=== PATIENT | female | born 1990 | race American Indian/Alaskan Native ===

== ENCOUNTER 2018-01-10 02:52 | Emergency (ER) | payer OTHER ==
[2018-01-10] MEDS ORDERED: ZOFRAN IV ONE ×2 (05:01→09:34)
[2018-01-10] MEDS ORDERED: NACL 0.9% 1000 ML 1,000 ML IV ONE (05:02)
[2018-01-10 05:47] LABS: Hematocrit 41.9 % (30.3-42.9); Hemoglobin 14.6 gm/dl (10.1-14.3); Mean Corpuscular HGB Conc 35 % (30-34); Mean Corpuscular Hemoglobin 30 pg (28-32); Mean Corpuscular Volume 86 fl (79-97); Platelet Count 261 K/mm3 (140-440); Red Cell Distribution Width 13.5 % (13.2-15.2)
[2018-01-10 05:48] LABS: Basophils % (Auto) 0.2 % (0.0-1.8); Lymphocytes # (Auto) 1.1 K/mm3 (1.2-5.4); Lymphocytes % (Auto) 9.4 % (13.4-35.0); Mean Platelet Volume 9.4 fl (6-12); Monocytes # (Auto) 0.4 K/mm3 (0.0-0.8); Monocytes % (Auto) 3.2 % (0.0-7.3)
[2018-01-10 05:54] LABS: BUN/Creatinine Ratio 13; Blood Urea Nitrogen 5 mg/dL (7-17); Hemolysis Index 24
[2018-01-10 06:16] LABS: Hyaline Casts,Urine 1 /LPF; Mucus,Urine 3+ /HPF
[2018-01-10 06:37] LABS: Color,Urine Dark Yellow (Yellow)
[2018-01-10 06:38] LABS: Bilirubin,Urine Negative (Negative); Blood,Urine 1+ (Negative); Urobilinogen,Urine < 2.0 mg/dL (<2.0)
--- NOTE | 2018-01-10 07:31 | Ultrasound Report ---
FINAL REPORT PROCEDURE: US OB < = 14 WEEKS FETUS TECHNIQUE: Real-time transabdominal sonography of the uterus, placenta, amniotic fluid, adnexa, and fetus was performed with image documentation. Measurements were obtained to determine age/size. M-mode Doppler was used to document heartbeat. CPT 87062 HISTORY: vaginal bleeding COMPARISON: No prior studies are available for comparison. FINDINGS: CRL: 43.20 mm, which corresponds to a gestational age of: 11 weeks, 1 days. Yolk Sac: Normal. Embryonic Cardiac Activity: 166 bpm Gestational Sac: Normal. Amniotic fluid: Normal. Cervix: Normal. Right Ovary: Normal. Left Ovary: Normal. Estimated delivery date: 07/28/18 Uterus and adnexa: Normal. IMPRESSION: Single live intrauterine gestation at approximately 11 weeks and 4 days. EDC by 07/28/2018
[2018-01-10] MEDS ORDERED: D5NS 1,000 ML IV SCH (10:00)
--- NOTE | 2018-01-10 10:18 | Emergency Department Report ---
ED N/V/D HPI - General Chief complaint: Abdominal Pain Stated complaint: N/V/D; 11WKS GEST Time Seen by Provider: 01/10/18 09:23 Source: patient Mode of arrival: Ambulatory Limitations: No Limitations - History of Present Illness Initial comments: 27-year-old female presents to the hospital approximately 11 weeks with her third child complaining of decreased by mouth tolerance secondary to nausea and vomiting for the past 4 days. Patient states that today vomitus was brown but denies ryan hematemesis. She complains of intermittent left upper quadrant sharp pain and noticed brown vaginal discharge after wiping yesterday. Patient denies diarrhea, fever, melena, dysuria, or hematochezia. She has not yet initiated care that she has had an ultrasound during this prior to today. - Related Data Previous Rx's Medication Instructions Recorded Last Taken Type Ondansetron [Zofran Odt] 4 mg PO Q8HR PRN #20 tab.rapdis 01/10/18 Unknown Rx Allergies Allergy/AdvReac Type Severity Reaction Status Date / Time No Known Allergies Allergy Verified 01/10/18 09:28 ED Review of Systems ROS: Stated complaint: N/V/D; 11WKS GEST Other details as noted in HPI Comment: All other systems reviewed and negative ED Past Medical Hx - Past Medical History Previous Medical History?: No - Surgical History Past Surgical History?: No - Social History Smoking Status: Never Smoker Substance Use Type: None - Medications Home Medications: Home Medications Medication Instructions Recorded Confirmed Last Taken Type Ondansetron [Zofran Odt] 4 mg PO Q8HR PRN #20 tab.rapdis 01/10/18 Unknown Rx ED Physical Exam - General Limitations: No Limitations - Other Other exam information: General: No limitations, patient is alert in no acute distress Head exam: Atraumatic, normocephalic Eyes exam: Normal appearance, pupils equal reactive to light, extraocular movements intact ENT: Moist mucous membrane, normal oropharynx Neck exam: Normal inspection, full range of motion, no meningismus nontender Respiratory exam: Clear to auscultation bilateral, no wheezes, rales, crackles Cardiovascular: Mild tachycardia regular rhythm Abdomen: Soft, nondistended, and nontender, with normal bowel sounds, no rebound, or guarding Extremity: Full range of motion normal inspection no deformity Back: Normal Inspection, full range of motion, no tenderness Neurologic: Alert, oriented x3, cranial nerves intact, no motor or sensory deficit Psychiatric: normal affect, normal mood Skin: Warm, dry, intact ED Course Vital Signs 01/10/18 01/10/18 01/10/18 02:57 04:47 09:15 Temperature 99.3 F 99.3 F Pulse Rate 104 H 104 H Respiratory 18 18 16 Rate Blood Pressure 117/80 117/80 Blood Pressure [Left] O2 Sat by Pulse 98 99 Oximetry 01/10/18 01/10/18 09:19 12:07 Temperature 98.2 F 98.5 F Pulse Rate 63 76 Respiratory 16 17 Rate Blood Pressure 99/61 Blood Pressure 103/59 [Left] O2 Sat by Pulse 98 100 Oximetry ED Medical Decision Making - Lab Data Result diagrams: 01/10/18 05:13 01/10/18 05:13 Lab Results 01/10/18 01/10/18 01/10/18 Range/Units 05:13 05:13 05:13 WBC 11.9 H (4.5-11.0) K/mm3 RBC 4.90 (3.65-5.03) M/mm3 Hgb 14.6 H (10.1-14.3) gm/dl Hct 41.9 (30.3-42.9) % MCV 86 (79-97) fl MCH 30 (28-32) pg MCHC 35 H (30-34) % RDW 13.5 (13.2-15.2) % Plt Count 261 (140-440) K/mm3 Lymph % (Auto) 9.4 L (13.4-35.0) % Mcmullen % (Auto) 3.2 (0.0-7.3) % Eos % (Auto) 0.0 (0.0-4.3) % Baso % (Auto) 0.2 (0.0-1.8) % Lymph # 1.1 L (1.2-5.4) K/mm3 Mcmullen # 0.4 (0.0-0.8) K/mm3 Eos # 0.0 (0.0-0.4) K/mm3 Baso # 0.0 (0.0-0.1) K/mm3 Seg Neutrophils % 87.2 H (40.0-70.0) % Seg Neutrophils # 10.4 H (1.8-7.7) K/mm3 Sodium 138 (137-145) mmol/L Potassium 4.2 (3.6-5.0) mmol/L Chloride 96.3 L (98-107) mmol/L Carbon Dioxide 22 (22-30) mmol/L Anion Gap 24 mmol/L BUN 5 L (7-17) mg/dL Creatinine 0.4 L (0.7-1.2) mg/dL Estimated GFR > 60 ml/min BUN/Creatinine Ratio 13 % Glucose 88 (65-100) mg/dL Calcium 10.0 (8.4-10.2) mg/dL HCG, Quant 110283 H (0-4) mIU/mL Urine Color (Yellow) Urine Turbidity (Clear) Urine pH (5.0-7.0) Ur Specific Sontag (1.003-1.030) Urine Protein (Negative) mg/dL Urine Glucose (UA) (Negative) mg/dL Urine Ketones (Negative) mg/dL Urine Blood (Negative) Urine Nitrite (Negative) Ur Reducing Substances Urine Bilirubin (Negative) Urine Ictotest Urine Urobilinogen (<2.0) mg/dL Ur Leukocyte Esterase (Negative) Urine WBC (Auto) (0.0-6.0) /HPF Urine RBC (Auto) (0.0-6.0) /HPF U Epithel Cells (Auto) (0-13.0) /HPF Hyaline Casts /LPF Urine Mucus /HPF Blood Type Antibody Screen 01/10/18 01/10/18 Range/Units 05:28 09:40 WBC (4.5-11.0) K/mm3 RBC (3.65-5.03) M/mm3 Hgb (10.1-14.3) gm/dl Hct (30.3-42.9) % MCV (79-97) fl MCH (28-32) pg MCHC (30-34) % RDW (13.2-15.2) % Plt Count (140-440) K/mm3 Lymph % (Auto) (13.4-35.0) % Mcmullen % (Auto) (0.0-7.3) % Eos % (Auto) (0.0-4.3) % Baso % (Auto) (0.0-1.8) % Lymph # (1.2-5.4) K/mm3 Mcmullen # (0.0-0.8) K/mm3 Eos # (0.0-0.4) K/mm3 Baso # (0.0-0.1) K/mm3 Seg Neutrophils % (40.0-70.0) % Seg Neutrophils # (1.8-7.7) K/mm3 Sodium (137-145) mmol/L Potassium (3.6-5.0) mmol/L Chloride (98-107) mmol/L Carbon Dioxide (22-30) mmol/L Anion Gap mmol/L BUN (7-17) mg/dL Creatinine (0.7-1.2) mg/dL Estimated GFR ml/min BUN/Creatinine Ratio % Glucose (65-100) mg/dL Calcium (8.4-10.2) mg/dL HCG, Quant (0-4) mIU/mL Urine Color Dark yellow (Yellow) Urine Turbidity Clear (Clear) Urine pH 5.0 (5.0-7.0) Ur Specific Sontag 1.035 H (1.003-1.030) Urine Protein 100 mg/dl (Negative) mg/dL Urine Glucose (UA) Negative (Negative) mg/dL Urine Ketones 300 (Negative) mg/dL Urine Blood 1+ (Negative) Urine Nitrite Negative (Negative) Ur Reducing Substances Not Reportable Urine Bilirubin Negative (Negative) Urine Ictotest Not Reportable Urine Urobilinogen < 2.0 (<2.0) mg/dL Ur Leukocyte Esterase Negative (Negative) Urine WBC (Auto) 2.0 (0.0-6.0) /HPF Urine RBC (Auto) 3.0 (0.0-6.0) /HPF U Epithel Cells (Auto) 15.0 H (0-13.0) /HPF Hyaline Casts 1 /LPF Urine Mucus 3+ /HPF Blood Type A NEGATIVE Antibody Screen Negative - Radiology Data Radiology results: report reviewed FINAL REPORT PROCEDURE: US OB lt; = 14 WEEKS FETUS TECHNIQUE: Real-time transabdominal sonography of the uterus, placenta, amniotic fluid, adnexa, and fetus was performed with image documentation. Measurements were obtained to determine age/size. M-mode Doppler was used to document heartbeat. CPT 23077 HISTORY: vaginal bleeding COMPARISON: No prior studies are available for comparison. FINDINGS: CRL: 43.20 mm, which corresponds to a gestational age of: 11 weeks, 1 days. Yolk Sac: Normal. Embryonic Cardiac Activity: 166 bpm Gestational Sac: Normal. Amniotic fluid: Normal. Cervix: Normal. Right Ovary: Normal. Left Ovary: Normal. Estimated delivery date: 07/28/18 Uterus and adnexa: Normal. IMPRESSION: Single live intrauterine gestation at approximately 11 weeks and 4 days. EDC by 07/28/2018 - Medical Decision Making n/v in pregancy improved with ed zofran and ivf HR improved jacque po intake after tx brown vag d/c possible bloody spotting no resolved A- blood type Rhogam given kettle cleaner f/u encouraged - Differential Diagnosis nausea vomiting in , threatened miscarriage, dehydration Critical Care Time: No Critical care attestation.: If time is entered above; I have spent that time in minutes in the direct care of this critically ill patient, excluding procedure time. ED Disposition Clinical Impression: Nausea and vomiting during , Type A blood, Rh negative, Need for rhogam due to Rh negative mother, 11 weeks gestation of Disposition: - TO HOME OR SELFCARE Is pt being admited?: No Does the pt Need Aspirin: No Instructions: Hyperemesis Gravidarum (ED), Rho(D) Immune Globulin (Injection) Additional Instructions: Take the medication as prescribed. Follow up with your doctor. Return if symptoms worsen as indicated by your discharge instructions Prescriptions: Ondansetron [Zofran Odt] 4 mg PO Q8HR PRN #20 tab.rapdis PRN Reason: Nausea And Vomiting Referrals: [facility] [Provider Group] - 3-5 Days Time of Disposition: 12:30
[2018-01-10 12:21] VITALS: BP 99/61
== END 2018-01-10 13:12 | disposition home or self-care (01) ==
LOC: ED 02:52
DX: O21.9 Vomiting of pregnancy, unspecified (principal); Z31.82 Encounter for Rh incompatibility status; Z3A.11 11 weeks gestation of pregnancy; Z79.899 Other long term (current) drug therapy
CPT/HCPCS: 36415; 76801; 80048; 81001; 84702; 85025; 86850; 86900; 86901; 90384; 96361; 96372; 96374; 99284; J2405; J2790; J7030; J7042

== ENCOUNTER 2018-08-03 13:19 | Inpatient (IN) | payer MEDICAID ==
[2018-08-03] MEDS ORDERED: BRETHINE IVP PRN (14:02)
[2018-08-03] MEDS ORDERED: BRETHINE SUB-Q PRN (14:02)
[2018-08-03] MEDS ORDERED: MINERAL OIL PO PRN (14:02)
[2018-08-03] MEDS ORDERED: CERVIDIL VG ONE (14:30)
[2018-08-03 14:45] LABS: Hematocrit 28.3 % (30.3-42.9); Hemoglobin 9.6 gm/dl (10.1-14.3); Mean Corpuscular HGB Conc 34 % (30-34); Mean Corpuscular Volume 81 fl (79-97); Platelet Count 197 K/mm3 (140-440); Red Blood Count 3.49 M/mm3 (3.65-5.03); Red Cell Distribution Width 17.3 % (13.2-15.2)
--- NOTE | 2018-08-03 14:55 | History and Physical Report ---
History of Present Illness Date of examination: 08/03/18 Date of admission: 08/03/18 13:19 Chief complaint: Sent from the office for IOL due to low fluid History of present illness: 27 yo Fe , CHERYL 08/02/2018(LMP), 40w 1d, presents from office for oligohydramnios and BPP 10/28 for IOL. Pt initiated late care at [facility] 14w5d. RH Negative (Rhogam given 01/10/18). Early complicated with significant hyperemesis and electrolyte imbalance (Hypokalemia which resolved), vitamin D3 deficiency (D3 supplementation), abnormal Quad screen + DSR(low risk InformaSeq), Elevated liver enzymes (AST/ALT 02/14 533/979; resolved). labs: A positive, Rubella Immune, VDRL non-reactive, HIV Negative, HBsAg Negative, GC/CL/Trich Negative,GBS Negative Past History Past Medical History: thyroid disease (Hyperthyroidism; endocrinology) Past Surgical History: no surgical history (Denies) [employer] History: denies: abnormal PAP smear, chlamydia, gonorrhea, hepatitis B, hepatitis C, herpes, HIV, syphilis, trichomonas Family/Genetic History: none Social history: no significant social history, single, lives with family, full code. denies: smoking, alcohol abuse, prescription drug abuse, IV drug use - Obstetrical History Expected Date of Delivery: 08/01/18 Actual Gestation: 40 Week(s) 2 Day(s) : 3 Para: 0 Hx # Term Pregnancies: 0 Number of Pregnancies: 0 Spontaneous Abortions: 1 Induced : 1 Number of Living Children: 0 Medications and Allergies Allergies Allergy/AdvReac Type Severity Reaction Status Date / Time No Known Allergies Allergy Verified 01/10/18 09:28 Home Medications Medication Instructions Recorded Confirmed Last Taken Type Ondansetron [Zofran Odt] 4 mg PO Q8HR PRN #20 tab.rapdis 01/10/18 Unknown Rx Active Meds: Active Medications Butorphanol Tartrate (Stadol) 2 mg IV Q2H PRN PRN Reason: Pain , Severe (7-10) Ephedrine Sulfate (Ephedrine Sulfate) 10 mg IV Q2M PRN PRN Reason: Hypotension Lactated Ringer's (Lactated Ringers) 1,000 mls @ 125 mls/hr IV DIRECT EDMUNDO Oxytocin/Sodium Chloride (Pitocin/Ns 20 Unit/1000ml Drip) 20 units in 1,000 mls @ 125 mls/hr IV DIRECT EDMUNDO Mineral Oil (Mineral Oil) 30 ml PO QHS PRN PRN Reason: Constipation Terbutaline Sulfate (Brethine) 0.25 mg SUB-Q ONCE PRN PRN Reason: Hyperstimulation/Hypertonicity Terbutaline Sulfate (Brethine) 0.25 mg IVP ONCE PRN PRN Reason: Hyperstimulation/Hypertonicity Review of Systems Cardiovascular: no chest pain, no shortness of breath Respiratory: no shortness of breath Breasts: normal Gastrointestinal: no abdominal pain, no nausea, no vomiting, no diarrhea, no constipation Genitourinary: normal appearance, no vaginal bleeding, no vaginal discharge, no leakage of fluid, no genital sores, no contractions Integumentary: no rash, no sores, no lesions Psychiatric: other (Denies) - Vital Signs Vital signs: Vital Signs Pulse BP 105 H 120/72 08/03/18 13:41 08/03/18 13:41 Temp Pulse Resp BP Pulse Ox 105 H 120/72 08/03/18 13:41 08/03/18 13:41 - Physical Exam Breasts: Positive: normal Cardiovascular: Regular rate, Normal S1, Normal S2, No murmurs Lungs: Positive: Clear to auscultation, Normal air movement Abdomen: Positive: normal appearance, soft, normal bowel sounds. Negative: distention Genitourinary (Female): Positive: normal external genitalia, normal perenium Vulva: both: normal Vagina: Positive: normal moisture Uterus: Positive: enlarged (gravid) Anus/Rectum: Positive: normal perianal skin Extremities: Positive: normal Deep Tendon Reflex Grade: Normal +2 - Obstetrical FHR: category 1 Uterine Contraction Monitor Mode: External Cervical Dilatation: 1 (Per admitting RN) Uterine Contraction Pattern: Irregular Uterine Tone Measurement Phase: Resting Uterine Contraction Intensity: Mild Results Result Diagrams: 08/03/18 14:00 Abnormal lab results 08/03/18 Range/Units 14:00 RBC 3.49 L (3.65-5.03) M/mm3 Hgb 9.6 L (10.1-14.3) gm/dl Hct 28.3 L (30.3-42.9) % RDW 17.3 H (13.2-15.2) % All other labs normal. Assessment and Plan A: Term IUP at 40w1d GBS Negative Oligohydramnios Category 1 tracing Hx: elevated liver enzymes in (bile salts WNL) P: Admit to L&D; Routine labor orders CMP Cervidil Anticipate
[2018-08-03] MEDS ORDERED: PITOCin/NS 20 UNIT/1000ML DRIP 20 UNITS/1,000 ML BAG IV SCH (15:00)
[2018-08-03 19:18] LABS: Alanine Aminotransferase 8 units/L (7-56); Albumin 3.2 g/dL (3.9-5); BUN/Creatinine Ratio 10; Blood Urea Nitrogen 4 mg/dL (7-17); Calcium 8.7 mg/dL (8.4-10.2); Hemolysis Index 6
[2018-08-04] MEDS: LACTATED RINGERS 1,000 ML IV SCH (13:30)
[2018-08-04] MEDS ORDERED: PITOCin/NS 30 UNIT/500ML 30,000 MILLIUNITS/500 ML BAG IV ONE (15:02)
[2018-08-04] MEDS ORDERED: PITOCin/NS 30 UNIT/500ML 30 UNITS/500 ML BAG IV SCH (19:00)
--- NOTE | 2018-08-04 20:42 | Progress Note ---
Assessment and Plan A: at 40 weeks, 2 days gestation. Oligohydramnios. BPP 6/8. GBS negative. P: Continue Pitocin induction of labor. Continuous EFM. Subjective - Subjective Date of service: 08/04/18 Principal diagnosis: at 40 weeks, 2 days gestation Interval history: 27 year old female at 40 weeks, 2 days gestation being induced for oligohydramnios and BPP 6/8. Patient has received Cervidil for cervical ripening and Pitocin for induction. Assumed care of patient. Patient states contractions are becoming more uncomfortable. She denies leaking of fluid or vaginal bleeding. She reports active movement. Patient reports: movement normal, contractions, no loss of fluid, no vaginal bleeding Objective - Vital Signs Vital Signs: Vital Signs - 12hr 08/04/18 08/04/18 08/04/18 09:24 10:24 11:23 Temperature Pulse Rate 82 86 87 Respiratory Rate Blood Pressure 108/59 116/71 106/59 08/04/18 08/04/18 08/04/18 12:16 13:17 13:48 Temperature 97.9 F Pulse Rate 85 77 Respiratory 18 Rate Blood Pressure 113/73 106/65 08/04/18 08/04/18 08/04/18 14:17 14:47 15:18 Temperature Pulse Rate 78 75 72 Respiratory Rate Blood Pressure 105/67 111/67 106/67 08/04/18 08/04/18 08/04/18 15:49 16:17 16:48 Temperature Pulse Rate 75 75 78 Respiratory Rate Blood Pressure 111/70 107/64 113/67 08/04/18 08/04/18 08/04/18 17:17 17:47 18:17 Temperature Pulse Rate 86 72 86 Respiratory Rate Blood Pressure 109/62 93/54 93/51 08/04/18 08/04/18 08/04/18 18:47 19:19 19:48 Temperature Pulse Rate 85 76 75 Respiratory Rate Blood Pressure 97/55 107/62 108/66 08/04/18 20:18 Temperature Pulse Rate 86 Respiratory Rate Blood Pressure 105/68 - Exam Abdomen: Present: normal appearance, soft. Absent: distention, tenderness, guarding, rigidity FHR: category 1 Uterine Contraction Monitor Mode: External Cervical Dilatation: 2.5 Cervical Effacement Percentage: 90 station: -2 Uterine Contraction Pattern: Regular Uterine Contraction Intensity: Mild Extremities: normal - Labs Labs: Abnormal Labs 08/03/18 08/03/18 14:00 18:30 RBC 3.49 L Hgb 9.6 L Hct 28.3 L RDW 17.3 H Sodium 135 L Carbon Dioxide 21 L BUN 4 L Creatinine 0.4 L Alkaline Phosphatase 203 H Albumin 3.2 L Laboratory Results - last 24 hr 08/03/18 14:00 RPR Nonreactive
[2018-08-05] MEDS ORDERED: CERVIDIL VG ONE ×2 (05:00→20:07)
--- NOTE | 2018-08-05 08:59 | Progress Note ---
Assessment and Plan S: at 40 weeks, 3 days gestation. Oligohydramnios. BPP 6/8. P: Continue Cervidil for cervical ripening. Continuous EFM. Subjective - Subjective Date of service: 08/05/18 Principal diagnosis: at 40 weeks, 3 days gestation Interval history: 27 year old female at 40 weeks, 3 days gestation being induced for oligohydramnios and BPP 6/8. Patient has Cervidil in place for cervical ripening. Patient denies vaginal bleeding or leaking of fluid. Patient reports active movement. Patient reports: movement normal, no loss of fluid, no vaginal bleeding, no contractions Objective - Vital Signs Vital Signs: Vital Signs - 12hr 08/04/18 08/04/18 08/04/18 21:17 21:47 22:19 Temperature Pulse Rate 77 88 83 Respiratory Rate Blood Pressure 110/71 94/57 122/69 Blood Pressure [Left] 08/04/18 08/04/18 08/04/18 22:47 23:19 23:48 Temperature Pulse Rate 90 85 92 H Respiratory Rate Blood Pressure 108/64 123/79 112/71 Blood Pressure [Left] 08/05/18 08/05/18 08/05/18 00:18 00:47 01:17 Temperature Pulse Rate 68 75 82 Respiratory Rate Blood Pressure 116/65 91/50 116/71 Blood Pressure [Left] 08/05/18 08/05/18 08/05/18 01:47 02:17 02:47 Temperature Pulse Rate 86 93 H 93 H Respiratory Rate Blood Pressure 99/55 99/63 101/57 Blood Pressure [Left] 08/05/18 08/05/18 08/05/18 03:18 03:47 04:17 Temperature Pulse Rate 94 H 93 H 89 Respiratory Rate Blood Pressure 101/64 89/52 94/61 Blood Pressure [Left] 08/05/18 08/05/18 08/05/18 04:47 05:17 05:38 Temperature Pulse Rate 85 100 H 96 H Respiratory Rate Blood Pressure 101/64 103/58 90/55 Blood Pressure [Left] 08/05/18 08/05/18 08/05/18 05:39 05:47 06:17 Temperature 98.4 F Pulse Rate 96 H 93 H 96 H Respiratory 18 Rate Blood Pressure 93/55 92/53 Blood Pressure 90/55 [Left] 0308/05/18 08/05/18 06:46 06:48 08:10 Temperature 98.2 F Pulse Rate 95 H 77 Respiratory 16 Rate Blood Pressure 112/66 108/61 Blood Pressure [Left] - Exam Abdomen: Present: normal appearance, soft. Absent: distention, tenderness, guarding, rigidity Uterus: Present: normal, fundal height above umbilicus FHR: category 1 Uterine Contraction Monitor Mode: External Uterine Contraction Pattern: Absent - Labs Labs: Abnormal Labs 08/03/18 08/03/18 14:00 18:30 RBC 3.49 L Hgb 9.6 L Hct 28.3 L RDW 17.3 H Sodium 135 L Carbon Dioxide 21 L BUN 4 L Creatinine 0.4 L Alkaline Phosphatase 203 H Albumin 3.2 L Laboratory Results - last 24 hr 08/03/18 14:00 RPR Nonreactive
[2018-08-05] MEDS: LACTATED RINGERS 1,000 ML IV SCH ×2 (14:49→22:51)
--- NOTE | 2018-08-06 08:48 | Progress Note ---
Assessment and Plan A: at 40 weeks, 4 days gestation. Oligohydramnios. BPP 6/8. P: Pitocin induction today. Continuous EFM. Anticipate vaginal . Subjective - Subjective Date of service: 08/06/18 Principal diagnosis: at 40 weeks, 4 days gestation Interval history: 27 year old female at 40 weeks, 4 days gestation being induced for oligohydramnios and BPP 6/8. Cervidil has just been removed from vagina. Patient denies vaginal bleeding or leaking of fluid. Patient reports: movement normal, no loss of fluid, no vaginal bleeding, no contractions Objective - Vital Signs Vital Signs: Vital Signs - 12hr 08/06/18 08/06/18 08/06/18 00:22 03:58 03:59 Temperature 98.3 F Pulse Rate 75 82 82 Respiratory 18 16 Rate Blood Pressure 103/63 113/72 Blood Pressure 103/63 113/72 [Left] 08/06/18 08/06/18 07:07 07:50 Temperature 97.8 F Pulse Rate 79 Respiratory 16 Rate Blood Pressure 107/70 Blood Pressure [Left] - Exam Abdomen: Present: normal appearance, soft. Absent: distention, tenderness, guarding, rigidity Uterus: Present: normal, fundal height above umbilicus. Absent: tenderness FHR: category 1 Uterine Contraction Monitor Mode: External Cervical Dilatation: 3 Cervical Effacement Percentage: 90 station: -2 Uterine Contraction Pattern: Irregular Uterine Contraction Intensity: Mild - Labs Labs: Abnormal Labs 08/03/18 08/03/18 14:00 18:30 RBC 3.49 L Hgb 9.6 L Hct 28.3 L RDW 17.3 H Sodium 135 L Carbon Dioxide 21 L BUN 4 L Creatinine 0.4 L Alkaline Phosphatase 203 H Albumin 3.2 L
[2018-08-06] MEDS ORDERED: PITOCin/NS 30 UNIT/500ML 30 UNITS/500 ML BAG IV SCH (10:40)
[2018-08-06] MEDS: STADOL IV PRN ×3 (13:10→21:58)
--- NOTE | 2018-08-06 13:28 | Event Note ---
Date: 08/06/18 Several late appearing heart rate decelerations noted. Pitocin turned off. Patient positioned in left lateral position and oxygen applied per face mask at 10 LPM. Contractions every 2-3 minutes. Uterus palpates soft between contractions. No vaginal bleeding or leaking of fluid.
[2018-08-06] MEDS ORDERED: NARCAN 2 MG/2 ML IV PRN (17:27)
--- NOTE | 2018-08-06 17:29 | Anesthesia Consultation ---
Anesthesia Consult and Med Hx - Airway Anesthetic Teeth Evaluation: Good ROM Head & Neck: Adequate Mental/Hyoid Distance: Adequate Mallampati Class: Class II Intubation Access Assessment: Probably Good - Pulmonary Exam CTA: Yes - Cardiac Exam Cardiac Exam: RRR - Pre-Operative Health Status ASA Pre-Surgery Classification: ASA2 Proposed Anesthetic Plan: Epidural - Pulmonary Hx Smoking: No Hx Asthma: No Hx Respiratory Symptoms: No SOB: No COPD: No Home Oxygen Therapy: No Hx Pneumonia: No - Cardiovascular System Hx Hypertension: No - Central Nervous System Hx Seizures: No Hx Psychiatric Problems: No - Endocrine Hx Renal Disease: No Hx End Stage Renal Disease: No Hx Hypothyroidism: No Hx Hyperthyroidism: No - Hematic Hx Anemia: No Hx Sickle Cell Disease: No - Other Systems Hx Alcohol Use: No
--- NOTE | 2018-08-06 17:29 | Anesthesia Day of Surgery ---
Anesthesia Day of Surgery - Day of Surgery Patient Examined: Yes Patient H&P Reviewed: Yes Patient is NPO: Yes Beta Blockers: No Cardiac Clearance: No Pulmonary Clearance: No Tyler's Test: N/A
[2018-08-06] MEDS ORDERED: fentaNYL-BUPIV 2 MCG/ML-0.125% 200 MCG/100 ML BAG EPIDURAL SCH (18:00)
[2018-08-06] MEDS: LACTATED RINGERS 1,000 ML IV SCH (20:48)
[2018-08-07] MEDS ORDERED: AMBIEN PO ONE (01:24)
[2018-08-07] MEDS: LACTATED RINGERS 1,000 ML IV SCH (05:15)
[2018-08-07] MEDS ORDERED: XYLOCAINE 2% INFILTRATI NR (06:57)
[2018-08-07] MEDS ORDERED: PITOCin/NS 30 UNIT/500ML 30 UNITS/500 ML BAG IV SCH (07:00)
--- NOTE | 2018-08-07 07:00 | Event Note ---
Date: 08/07/18 Patient has rested for several hours per her request. Resumed Pitocin. See orders.
--- NOTE | 2018-08-07 10:44 | Progress Note ---
Assessment and Plan - Patient Problems (1) 40 weeks gestation of Current Visit: Yes Status: Acute (2) Oligohydramnios in third trimester Current Visit: Yes Status: Acute Qualifiers: Fetus number: single or unspecified fetus Qualified Code(s): O41.03X0 - Oligohydramnios, third trimester, not applicable or unspecified (3) Encounter for induction of labor Current Visit: Yes Status: Acute Plan to address problem: - Continue current management - s/p Cervidil x3. Now on Pitocin - AROM attempted. No bag felt, no fluid seen. Significant bloody show present during exam. Pt reports she has been leaking clear fluid since 08/06/18 @ 14:00. Per pt, she informed RN but was reassured it was vaginal discharge. Pt is afebrile. Discussed POC with Dr. Renae. She recommended initiation of Ampicillin for chorio prophylaxis. Will continue Pitocin for labor augmentation. Patient awaiting Epidural anesthesia. - Anticipate vaginal discharge Subjective - Subjective Date of service: 08/07/18 Principal diagnosis: IUP @ 40w4d; IOL secondary to Oligahydramnios Interval history: see H&P, OB Progress Notes and Event Notes Patient reports: loss of fluid (leaking fluid since 08/06/18 @ 14:00; clear), movement normal, contractions (strong), no vaginal bleeding Objective - Vital Signs Vital Signs: Vital Signs - 12hr 08/06/18 08/07/18 08/07/18 22:49 01:06 02:52 Temperature Pulse Rate 73 83 94 H Respiratory Rate Blood Pressure 113/59 102/55 99/57 08/07/18 08/07/18 08/07/18 03:53 04:52 05:53 Temperature Pulse Rate 79 87 77 Respiratory Rate Blood Pressure 97/52 110/58 116/67 08/07/18 08/07/18 08/07/18 06:52 07:07 07:53 Temperature 97.9 F Pulse Rate 80 82 Respiratory 16 Rate Blood Pressure 93/58 115/66 08/07/18 08/07/18 08/07/18 09:30 10:02 10:33 Temperature Pulse Rate 82 83 98 H Respiratory Rate Blood Pressure 99/57 98/55 128/70 - Exam FHR: auscultation normal, category 1 FHR comments: baseline 140, moderate variability, 15x15 accels, early decels Cervical Dilatation: 4 Cervical Effacement Percentage: 90 station: -2 Uterine Contraction Pattern: Regular Extremities: normal - Labs Labs: Abnormal Labs 08/03/18 08/03/18 14:00 18:30 RBC 3.49 L Hgb 9.6 L Hct 28.3 L RDW 17.3 H Sodium 135 L Carbon Dioxide 21 L BUN 4 L Creatinine 0.4 L Alkaline Phosphatase 203 H Albumin 3.2 L
[2018-08-07] MEDS ORDERED: AMPICILLIN/NS 2 GM/100 ML 2 GM/100 ML BAG IV ONE (11:00)
[2018-08-07] MEDS ORDERED: NARCAN 2 MG/2 ML IV PRN (12:26)
[2018-08-07] MEDS ORDERED: fentaNYL-BUPIV 2 MCG/ML-0.125% 200 MCG/100 ML BAG EPIDURAL SCH (13:00)
[2018-08-07] MEDS ORDERED: AMPICILLIN/NS 1 GM/50 ML 1 GM/50 ML BAG IV SCH (14:00)
--- NOTE | 2018-08-07 17:56 | Procedure Note ---
OB Delivery Note - Delivery Date of Delivery: 08/07/18 (17:19) Surgeon: TORIE CAO (ASHLEE) Estimated blood loss: other (250cc) - Vaginal Delivery presentation: vertex Delivery position: OA Intrapartum events: none Delivery induction: other (cervidil, oxytocin) Delivery monitor: external FHT, external uterine Route of delivery: (17:19) Delivery placenta: spontaneous (17:24) Delivery cord: 3 umbilical vessels Episiotomy: none Delivery laceration: 1st degree (vaginal & perineal) Delivery repair: vicryl ( 3-0 CT1) Anesthesia: epidural Delivery comments: of a vigorous term 6 lbs 13 oz male on 08/07/18 @ 17:19. Baby placed [id number] on maternal abdomen. After 3 mins, umbilical cord double-clamped by ASHLEE Cao and cut by FOB. Cord blood collected. Spontaneous delivery of placenta, Jim-side presenting @ 17:24. Moderate lochia present. Fundal massage and IV Pitocin bolus initiated. Fundus F/ML/U-2. 1st degree vaginal & perineal laceration noted and repaired under epidural anesthesia. Pt tolerated the procedure well. Placenta intact; was discarded. Mom and baby in stable condition. - Infant A at 1 minute: 8 at 5 minutes: 9 Gender: Male (6 lbs 13 oz (3094 gm); 19.5 in)
[2018-08-07] MEDS ORDERED: DULCOLAX PR PRN (17:57)
[2018-08-07] MEDS ORDERED: PHENERGAN PO PRN (17:57)
[2018-08-07] MEDS ORDERED: MILK OF MAGNESIA PO PRN (17:57)
[2018-08-07] MEDS ORDERED: NORCO 5/325 PO PRN (17:57)
[2018-08-07] MEDS ORDERED: BENADRYL PO PRN (17:57)
[2018-08-07] MEDS ORDERED: ZOFRAN IV PRN (17:57)
[2018-08-07] MEDS ORDERED: TYLENOL PO PRN (17:57)
[2018-08-07] MEDS ORDERED: TUCKS PAD TP PRN (17:57)
[2018-08-07] MEDS ORDERED: LANSINOH TP PRN (17:57)
[2018-08-07] MEDS ORDERED: PHENERGAN PR PRN (17:57)
[2018-08-07] MEDS ORDERED: SODIUM CHLORIDE FLUSH SYRINGE 10 ML IV NR (18:00)
[2018-08-07] MEDS: FEOSOL PO SCH (22:09)
[2018-08-07] MEDS: IBUPROFEN PO SCH (22:10)
[2018-08-08] MEDS: IBUPROFEN PO SCH ×2 (06:26→22:05)
[2018-08-08 06:59] LABS: Hematocrit 22.2 % (30.3-42.9); Hemoglobin 7.6 gm/dl (10.1-14.3)
--- NOTE | 2018-08-08 09:36 | Post Anesthesia Evaluation ---
- Post Anesthesia Evaluation Patient Participated: Yes Airway Patent: Yes Stable Respiratory Function: Yes Nausea/Vomiting: No Temp > 96.8F: Yes Pain Manageable: Yes Adequeate Hydration: Yes Anesthesia Complications: No Block Receding Appropriately: Yes Patient on Ventilator: No Other Comments: Rounded on patient post delivery day 1. No remaining weakness, numbness or tingling. Patient reports satisfaction with pain control during delivery. No BRINK, N/V, or photophobia. Explained to patient soreness at epidural insertion site is normal. Questions answered.
--- NOTE | 2018-08-08 10:34 | Progress Note ---
Assessment and Plan A: 1. 27 yo , PPD1 s/p 2. Anemia (asymptomatic) 3. Hyperthyroidism 4. 1st degree perineal laceration P: 1. Infed 100 mg IM x 1 dose 2. Continue routine PP orders 3. Continue po iron replacement 4. Anticipate D/C home tomorrow Subjective - Subjective Date of service: 08/08/18 Principal diagnosis: IUP @ 40w4d; IOL secondary to Oligahydramnios Interval history: See Admission H & P; OB delivery summary Patient reports: appetite normal, voiding normally, pain well controlled, ambulating normally : doing well, other (and breast feeding), bottle feeding Objective - Vital Signs Latest vital signs: Vital Signs Temp Pulse Resp BP Pulse Ox 08/08/18 08:35 98.4 F 80 20 103/67 100 08/08/18 05:22 98.2 F 81 20 95/56 98 08/08/18 02:00 98.9 F 76 18 92/48 99 08/07/18 20:17 98.5 F 83 18 112/60 100 08/07/18 18:44 76 108/55 08/07/18 18:29 99/60 08/07/18 18:14 81 100/59 08/07/18 18:00 81 102/68 08/07/18 17:45 92 H 110/75 08/07/18 17:30 120 H 126/75 08/07/18 16:49 100 H 132/79 08/07/18 16:28 102 H 124/82 08/07/18 16:11 100 H 80 L 08/07/18 16:07 89 110/84 94 08/07/18 16:06 92 H 94 08/07/18 16:00 103 H 100 08/07/18 15:57 97 H 92 08/07/18 15:55 95 H 100 08/07/18 15:50 94 H 98 08/07/18 15:48 89 118/62 08/07/18 15:45 90 100 08/07/18 15:40 87 100 08/07/18 15:35 99 H 96 08/07/18 15:30 82 100 08/07/18 15:29 82 101/55 08/07/18 15:25 98 H 99 08/07/18 15:20 78 100 03/18/19 15:15 77 99 03/18/19 15:10 87 100 03/18/19 15:08 77 102/51 03/18/19 15:05 86 100 03/18/19 15:00 84 100 03/18/19 14:55 75 100 03/18/19 14:50 74 75 L /18/19 14:47 88 124/58 03/18/19 14:44 80 89 03/18/19 14:43 81 91 03/18/19 14:38 81 100 03/18/19 14:33 92 H 89 03/18/19 14:29 85 91 03/18/19 14:28 82 104/58 100 03/18/19 14:23 79 96 03/18/19 14:18 83 96 03/18/19 14:17 78 93 03/18/19 14:13 79 100 03/18/19 14:12 78 93 03/18/19 14:08 78 100 03/18/19 14:04 82 109/58 03/18/19 14:03 78 97 18/19 14:02 77 87 03/18/19 14:01 82 102/57 03/18/19 13:59 76 111/56 03/18/19 13:58 80 100 03/18/19 13:57 87 90 03/18/19 13:55 81 126/66 03/18/19 13:53 76 92 03/18/19 13:52 77 129/68 03/18/19 13:49 79 112/64 93 03/18/19 13:48 80 98 03/18/19 13:46 69 117/61 03/18/19 13:44 80 93 03/18/19 13:43 80 114/68 97 03/18/19 13:40 82 122/69 03/18/19 13:38 81 84 03/18/19 13:37 75 119/58 03/18/19 13:34 86 128/74 03/18/19 13:31 84 124/71 99 03/18/19 13:28 72 118/69 03/18/19 13:26 78 100 03/18/19 13:25 81 115/68 03/18/19 13:22 88 111/70 03/18/19 13:21 91 H 100 03/18/19 13:19 81 102/63 03/18/19 13:16 86 108/66 100 08/07/18 13:13 88 107/67 08/07/18 13:11 84 107/58 99 08/07/18 13:10 39 L 08/07/18 13:08 86 111/67 08/07/18 13:06 91 H 100 08/07/18 13:05 91 H 123/70 08/07/18 13:01 86 117/75 100 08/07/18 12:58 82 125/79 08/07/18 12:57 85 08/07/18 12:55 81 121/75 08/07/18 12:53 74 100 08/07/18 12:52 73 121/69 08/07/18 12:49 72 118/64 08/07/18 12:48 76 100 08/07/18 12:46 78 123/73 08/07/18 12:43 78 118/73 100 08/07/18 12:40 83 123/72 08/07/18 12:38 81 119/76 97 08/07/18 12:35 81 118/83 08/07/18 12:33 79 100 08/07/18 12:31 82 124/72 08/07/18 12:28 83 114/68 100 08/07/18 12:25 90 120/71 08/07/18 12:23 85 113/64 100 08/07/18 12:18 88 100 08/07/18 12:13 96 H 100 08/07/18 12:11 28 L 0 L 08/07/18 12:08 85 100 08/07/18 12:03 97 H 100 08/07/18 11:58 92 H 99 08/07/18 11:01 78 107/61 08/07/18 10:33 98 H 128/70 Intake and Output 08/07/18 08/08/18 08/08/18 23:59 07:59 15:59 Intake Total 360 Output Total 1300 900 Balance -1300 -540 Intake: Oral 360 Output: Urine 1300 900 Indwelling Catheter 800 Void 500 900 Other: Total, Intake Amount 360 Total, Output Amount 500 900 # Voids Void 1 Estimated Blood Loss 250 - Exam Breasts: Present: normal Cardiovascular: Present: Regular rate, Normal S1, Normal S2 Lungs: Present: Clear to auscultation, Normal air movement Abdomen: Present: soft, normal bowel sounds Uterus: Present: firm, fundal height below umbilicus (U-1) Extremities: Present: normal Deep Tendon Reflex Grade: Normal +2 - Labs Labs: Abnormal lab results 08/08/18 Range/Units 06:45 Hgb 7.6 L (10.1-14.3) gm/dl Hct 22.2 L (30.3-42.9) %
--- NOTE | 2018-08-08 10:38 | Discharge Summary ---
Providers - Providers Date of Admission: 08/03/18 13:19 Date of discharge: 08/09/18 Attending physician: KATERINA BATEMAN MD Primary care physician: KATERINA BATEMAN MD Hospitalization Reason for admission: induction of labor, other (secondary to oligohydramnios) Delivery: Laceration: 1st degree Other procedures: none complications: other (Anemia (asymptomatic)) [place] baby: male Hospital course: See Admission H & P; OB delivery summary; and PP progress notes Condition at discharge: Stable Disposition: DC-01 TO HOME OR SELFCARE - Discharge Diagnoses (1) (normal spontaneous vaginal delivery) Status: Acute (2) Anemia Status: Acute Qualifiers: Anemia type: iron deficiency Plan - Provider Discharge Summary Activity: routine, no sex for 6 weeks, no heavy lifting 4 weeks, no strenuous exercise Diet: routine Instructions: routine Additional instructions: [] Smoking cessation referral if applicable(refer to patient education folder for contact #) [] Refer to [facility] Call your doctor immediately for: * Fever > 100.5 * Heavy vaginal bleeding ( >1 pad per hour) * Severe persistent headache * Shortness of breath * Reddened, hot, painful area to leg or breast * Drainage or odor from incision. - Follow up plan Follow up: KATERINA BATEMAN MD [Primary Care Provider] - 6 Weeks
[2018-08-08] MEDS: FEOSOL PO SCH ×2 (10:45→22:05)
[2018-08-08] MEDS: PRENATAL VITAMIN PO SCH (10:46)
[2018-08-08] MEDS: INFED IM ONE (22:04)
[2018-08-09] MEDS: IBUPROFEN PO SCH ×2 (00:34→05:39)
[2018-08-09] MEDS: INFED IM ONE (01:02)
[2018-08-09] MEDS ORDERED: BOOSTRIX IM ONE (06:00)
[2018-08-09] MEDS: FEOSOL PO SCH (10:25)
[2018-08-09] MEDS: PRENATAL VITAMIN PO SCH (10:26)
[2018-08-09 13:25] VITALS: BP 112/60
== END 2018-08-08 16:00 | disposition home or self-care (01) | DRG 775 ==
LOC: LD 13:19 → OB 08-07 20:15
PROVIDERS: ADMIT Obstetrics & Gynecology; ATTEND Obstetrics & Gynecology
PROC: 3E0P7VZ Introduction of Hormone into Female Reproductive, Via Natural or Artificial Opening (ICD-10-PCS; 2018-08-03)
PROC: 3E033VJ Introduction of Other Hormone into Peripheral Vein, Percutaneous Approach (ICD-10-PCS; 2018-08-03)
PROC: 10E0XZZ Delivery of Products of Conception, External Approach (ICD-10-PCS; principal; 2018-08-07)
PROC: 0UQGXZZ Repair Vagina, External Approach (ICD-10-PCS; 2018-08-07)
PROC: 0HQ9XZZ Repair Perineum Skin, External Approach (ICD-10-PCS; 2018-08-07)
PROC: 3E0R3BZ Introduction of Anesthetic Agent into Spinal Canal, Percutaneous Approach (ICD-10-PCS; 2018-08-07)
PROC: 00HU33Z Insertion of Infusion Device into Spinal Canal, Percutaneous Approach (ICD-10-PCS; 2018-08-07)
PROC: 3E0234Z Introduction of Serum, Toxoid and Vaccine into Muscle, Percutaneous Approach (ICD-10-PCS; 2018-08-08)
PROC: 3E0334Z Introduction of Serum, Toxoid and Vaccine into Peripheral Vein, Percutaneous Approach (ICD-10-PCS; 2018-08-08)
DX: O41.03X0 Oligohydramnios, third trimester, not applicable or unspecified (principal); Z37.0 Single live birth; Z3A.40 40 weeks gestation of pregnancy; Z67.11 Type A blood, Rh negative; Z23 Encounter for immunization; O99.284 Endocrine, nutritional and metabolic diseases complicating childbirth; O26.893 Other specified pregnancy related conditions, third trimester; E05.90 Thyrotoxicosis, unspecified without thyrotoxic crisis or storm; O90.81 Anemia of the puerperium; O70.0 First degree perineal laceration during delivery; D50.9 Iron deficiency anemia, unspecified
CPT/HCPCS: 36415; 59200; 80053; 85014; 85018; 85027; 85461; 86592; 86850; 86900; 86901; 90715; G0378; A6250; J0290; J0595; J1750; J2590; J2790; J7120